=== PATIENT | female | born 1995 | race Caucasian/White ===

== ENCOUNTER 2019-02-16 20:13 | Emergency (ER) | payer OTHER ==
[~2019-02-16] VITALS: Ht 167.6 cm; Wt 66.4 kg
[~2019-02-16 20:13] MED LIST: CEPH-443 PO; HYDR-3980 PO; IBUP800T48 PO; ONDA4TAB14 PO
[2019-02-16 20:49] VITALS: Ht 167.6 cm; Wt 66.4 kg
[2019-02-16] MEDS ORDERED: KETOROLAC 30 MG INJ IM STA (21:44)
[2019-02-16] MEDS ORDERED: ONDANSETRON (ODT) 4 MG TAB ODT STA (22:29)
[2019-02-16] MEDS ORDERED: HYDROCODONE/APAP (10/325) TAB PO ONE (22:30)
[2019-02-16 23:00] VITALS: BP 114/72; PULSE 81; RESP 18
== END 2019-02-16 23:24 | disposition home or self-care (01) ==
LOC: FTE 20:13
DX: S42.021A Displaced fracture of shaft of right clavicle, initial encounter for closed fracture (principal); N39.0 Urinary tract infection, site not specified; W18.39XA Other fall on same level, initial encounter; Y92.9 Unspecified place or not applicable
CPT/HCPCS: 29105; 73000; 73030; 81003; 81025; J1885; Z7610; 96372